=== PATIENT | male | born 1955 | race African-American/Black ===

== ENCOUNTER 2025-02-16 15:11 | Inpatient (IN) | payer OTHER ==
[2025-02-16 14:12] VITALS: BMI 25.8
[2025-02-16] MEDS ORDERED: POLYETHYLENE GLYCOL (HEALTHYLAX) 3350 17 GM PACKET PO PRN (15:36)
[2025-02-16] MEDS ORDERED: LOPERAMIDE HCL 2 MG CAPSULE PO PRN (15:36)
[2025-02-16] MEDS ORDERED: BENZONATATE 200 MG CAPSULE PO PRN (15:36)
[2025-02-16] MEDS ORDERED: NALOXONE (NARCAN) HCL 4 MG/0.1 ML SPRAY NS PRN (15:36)
[2025-02-16] MEDS ORDERED: BENZOCAINE/MENTHOL (CHLORASEPTIC ) LOZENGE MM PRN (15:36)
[2025-02-16] MEDS ORDERED: ACETAMINOPHEN 325 MG TABLET (FP) PO PRN (15:36)
[2025-02-16] MEDS ORDERED: MAGNESIUM HYDROX 2400MG/30ML ORAL SUSPENSION 30 ML CUP PO PRN (15:36)
[2025-02-16] MEDS ORDERED: IBUPROFEN 400 MG TABLET (FP) PO PRN (15:36)
[2025-02-16] MEDS ORDERED: guaiFENesin 600 MG TABLET.ER (FP) PO PRN (15:36)
[2025-02-16] MEDS: MELATONIN 5 MG TABLETS PO SCH (22:28)
[2025-02-16] MEDS: THIAMINE 100 MG TABLET PO SCH (22:28)
[2025-02-17] MEDS: PRENATAL VITAMINS W/ FOLIC ACID TABLET (FP) PO SCH (09:47)
[2025-02-17] MEDS: ASPIRIN COATED 81 MG TABLET.EC PO SCH (10:43)
[2025-02-17] MEDS: LOSARTAN POTASSIUM 25 MG TABLET PO SCH (10:43)
[2025-02-17 11:31] LABS: MCHC 30.8 g/dl (32.3-36.5); MEAN CELL VOLUME 88.4 fl (79.0-92.2); MEAN PLT VOLUME 10.8 fl (9.4-12.4); RDW 14.8 % (12.2-16.4)
[2025-02-17] MEDS: FLUTICASONE/UMECLIDIN/VILANTER(100-62.5-25 TRELEGY ELLIPTA) INAHLER IH SCH (11:42)
[2025-02-17 11:48] LABS: CO2 25 mmol/L (21-32)
[2025-02-17 11:49] LABS: GLUCOSE,RANDOM 80 mg/dL (74-106)
[2025-02-17 11:51] LABS: CREATININE 1.2 mg/dL (0.55-1.3); SGOT/AST 15 U/L (15-37); SGPT/ALT 22 U/L (13-61)
[2025-02-17 11:52] LABS: TOT PROT 6.7 g/dl (6.4-8.2)
[2025-02-17 11:56] LABS: ALK PHOS 70 U/L (45-117)
[2025-02-17 15:05] LABS: SYPHILIS W/ RPR CONF NON-REACTIVE (NONREACTIVE)
[2025-02-17 16:02] LABS: URINE APPEARANCE CLEAR; URINE BILIRUBIN NEGATIVE (NEGATIVE); URINE COLOR YELLOW; URINE GLUCOSE (UA) NEGATIVE (NEGATIVE); URINE KETONE NEGATIVE (NEGATIVE); URINE LEUK ESTERASE NEGATIVE (NEGATIVE); URINE NITRITE NEGATIVE (NEGATIVE); URINE PROTEIN NEGATIVE (NEGATIVE); URINE UROBILINOGEN 0.2 mg/dL (0.2-1.0)
[2025-02-17 17:13] LABS: HCV DIAGNOSTIC IN-HOUSE W/RFLX NON-REACTIVE (NONREACTIVE)
[2025-02-17] MEDS: ATORVASTATIN CA 40 MG TABLET (FP) PO SCH (21:45)
[2025-02-17] MEDS: amLODIPine BESYLATE 10 MG TABLET (FP) PO SCH (21:45)
[2025-02-18] MEDS: IBUPROFEN 600 MG TABLET (FP) PO PRN (15:26)
[2025-02-19] MEDS: MAG HYDROX/AL HYDROX/SIMETH 30 ML UNIT-DOSE CUP PO PRN (08:51)
[2025-02-22] MEDS: amLODIPine BESYLATE 10 MG TABLET (FP) PO SCH (06:11)
[2025-03-03] MEDS: MELATONIN 5 MG TABLETS PO SCH (21:22)
[2025-03-11] MEDS: SUVOREXANT 10 MG TABLET PO PRN (21:13)
[2025-03-15 09:14] VITALS: BP 105/80; PULSE 97; RESP 17; TEMP 97
== END 2025-03-15 10:47 | disposition home or self-care (01) | DRG 895 ==
LOC: YASAS 15:11 → Y5N 18:35 → Y3NR 18:49 → Y5N 02-17 09:19
PROVIDERS: ADMIT Psychiatry & Neurology Pain Medicine; ATTEND Psychiatry & Neurology Pain Medicine
PROC: HZ42ZZZ Group Counseling for Substance Abuse Treatment, Cognitive-Behavioral (ICD-10-PCS; principal; 2025-02-16)
DX: F11.20 Opioid dependence, uncomplicated (principal); F17.210 Nicotine dependence, cigarettes, uncomplicated; F41.9 Anxiety disorder, unspecified; E78.5 Hyperlipidemia, unspecified; I10 Essential (primary) hypertension; I49.9 Cardiac arrhythmia, unspecified; J44.9 Chronic obstructive pulmonary disease, unspecified; G47.00 Insomnia, unspecified; Z95.0 Presence of cardiac pacemaker; Z99.89 Dependence on other enabling machines and devices
CPT/HCPCS: 36415; 80053; 80305; 80307; 81003; 85027; 86780; 86803; 93005; 93010